=== PATIENT | male | born 1955 | race Caucasian/White ===

== ENCOUNTER 2022-12-02 13:59 | Emergency (ER) | payer MEDICARE, BC ==
[~2022-12-02] VITALS: Ht 177.8 cm; Wt 72.6 kg
[2022-12-02] MEDS ORDERED: SODIUM CHLORIDE 0.9% 1000ML 1,000 ML IV ONE (14:45)
[2022-12-02 14:51] LABS: INR 1.08; PROTHROMBIN TIME 14.7 seconds (11.9-14.5)
[2022-12-02 14:52] LABS: PARTIAL THROMBOPLASTIN TIME 29.1 seconds (23.8-35.5)
[2022-12-02 14:53] LABS: BASOPHILS % 0.2 % (0.0-1.0); EOSINOPHILS % 0.8 % (0.0-6.0); HEMATOCRIT 32.5 % (38.2-49.6); HEMOGLOBIN 11.5 g/dL (14.0-18.0); LYMPHOCYTES # (AUTO) 0.6 (1.0-3.2); LYMPHOCYTES % 12.4 % (18.0-39.1); MEAN CORPUSCULAR HEMOGLOBIN 31.8 pg (28-32); MEAN CORPUSCULAR HGB CONC 35.4 g/dL (31-35); MEAN CORPUSCULAR VOLUME 89.8 fL (81-99); MONOCYTES # (AUTO) 0.5 (0.2-0.8); MONOCYTES % 9.8 % (4.4-11.3); NEUTROPHILS # (AUTO) 3.8 (2.1-6.9); NEUTROPHILS % 76.6 % (38.7-80.0); PLATELET COUNT 164 x10e3/uL (140-360); RED BLOOD COUNT 3.62 x10e6/uL (4.3-5.7); WHITE BLOOD COUNT 4.91 x10e3/uL (4.8-10.8)
[2022-12-02] MEDS ORDERED: SODIUM CHLORIDE 0.9% 1000ML 1,000 ML ONE (14:54)
[2022-12-02 14:59] LABS: ANION GAP 15.7 mmol/L (8-16); CALCIUM 9.1 mg/dL (8.4-10.2); CREATININE, SERUM 1.31 mg/dL (0.72-1.25); POTASSIUM 3.7 mmol/L (3.5-5.1)
[2022-12-02 15:00] LABS: ALBUMIN 2.9 g/dL (3.5-5.0); BILIRUBIN,DIRECT 0.8 mg/dL (0.0-0.5); BILIRUBIN,TOTAL 1.9 mg/dL (0.2-1.2); TOTAL PROTEIN 7.2 g/dL (6.5-8.1)
[2022-12-02 15:06] LABS: TROPONIN I 0.001 ng/mL (0-0.300)
[2022-12-02 16:17] VITALS: BP 162/92; PULSE 71; RESP 18
[2022-12-02 16:46] VITALS: O2SAT 99
== END 2022-12-02 17:32 | disposition short-term general hospital (02) ==
LOC: FSED 14:03
DX: S06.5X0A Traumatic subdural hemorrhage without loss of consciousness, initial encounter (principal); R41.0 Disorientation, unspecified; E86.0 Dehydration; H60.92 Unspecified otitis externa, left ear; R10.9 Unspecified abdominal pain; W01.0XXA Fall on same level from slipping, tripping and stumbling without subsequent striking against object, initial encounter; Y93.89 Activity, other specified; Y92.89 Other specified places as the place of occurrence of the external cause; D64.9 Anemia, unspecified; R94.31 Abnormal electrocardiogram [ECG] [EKG]; Z85.05 Personal history of malignant neoplasm of liver; Z20.822 Contact with and (suspected) exposure to COVID-19
CPT/HCPCS: 0223U; 36415; 70450; 71045; 80048; 80076; 80307; 81003; 82140; 82550; 83605; 84484; 85025; 85610; 85730; 93005; 99284; J7030